=== PATIENT | female | born 2000 | race Caucasian/White ===

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

== ENCOUNTER 2021-05-18 18:30 | Emergency (ER) | payer OTHER ==
[2021-05-18 18:51] VITALS: BP 149/86; PULSE 117; RESP 18; TEMP 97.2
[2021-05-18] MEDS ORDERED: Acetaminophen-Codeine 300-30mg TAB PO STA (19:15)
[2021-05-18] MEDS ORDERED: ACET/COD 300 MG/30 MG STARTER PACK 6 TAB BTL PO STA (19:59)
--- NOTE | 2021-05-18 20:04 | ED ---
ENT HPI - General Chief complaint: ENT Stated complaint: Rt Ear Pain Time Seen by Provider: 05/18/21 18:53 Source: patient, RN notes reviewed Mode of arrival: ambulatory Limitations: no limitations - History of Present Illness Initial comments: Patient is a 21-year-old female that presents to the emergency department complaining of continuing ear pain. She notes that she was diagnosed with a ear infection today and was given Bactrim double strength to take 2 times a day. She notes that she took one dose of anabiotic this morning at 9 AM but is still having pain. Patient was informed that antibiotics take several days to take effect in that sometimes things may get worse before they get better. She notes that she's taken [id number] Motrin with no relief. Patient denied any other complaints at this time. Patient did state that she has a history of depression. She denied any chest pain shortness of breath headache nausea vomiting diarrhea constipation fever fatigue chills. - Related Data Allergies Allergy/AdvReac Type Severity Reaction Status Date / Time amoxicillin [From Augmentin] Allergy Anaphylaxis Verified 05/18/21 18:52 bee venom protein (honey bee) Allergy Swelling Verified 05/18/21 18:52 clavulanic acid Allergy Anaphylaxis Verified 05/18/21 18:52 [From Augmentin] sun Allergy Unknown Uncoded 05/18/21 18:52 Review of Systems ROS Statement: Those systems with pertinent positive or pertinent negative responses have been documented in the HPI. ROS Other: All systems not noted in ROS Statement are negative. Past Medical History Past Medical History: Asthma, GERD/Reflux History of Any Multi-Drug Resistant Organisms: None Reported Past Surgical History: No Surgical Hx Reported Past Psychological History: Anxiety, Depression Smoking Status: Never smoker Past Alcohol Use History: None Reported Past Drug Use History: None Reported General Exam Limitations: no limitations General appearance: alert, in no apparent distress, obese Head exam: Present: atraumatic, normocephalic, normal inspection Eye exam: Present: normal appearance, PERRL, EOMI. Absent: scleral icterus, conjunctival injection, periorbital swelling ENT exam: Present: normal exam, normal oropharynx, mucous membranes moist. Absent: TM's normal bilaterally (Right TM erythematous, patient states this is the painful ear.) Neck exam: Present: normal inspection Respiratory exam: Present: normal lung sounds bilaterally. Absent: respiratory distress, wheezes, rales, rhonchi, stridor Cardiovascular Exam: Present: regular rate, normal rhythm, normal heart sounds. Absent: systolic murmur, diastolic murmur, rubs, gallop, clicks Extremities exam: Present: normal inspection, full ROM, normal capillary refill. Absent: tenderness, pedal edema, joint swelling, calf tenderness Neurological exam: Present: alert, oriented X3 Psychiatric exam: Present: normal affect, depressed Skin exam: Present: warm, dry, intact, normal color. Absent: rash Course Vital Signs 05/18/21 18:47 Temperature 97.2 F L Pulse Rate 117 H Respiratory 18 Rate Blood Pressure 149/86 O2 Sat by Pulse 98 Oximetry Medical Decision Making - Medical Decision Making 21-year-old female complaining of ear pain after being diagnosed with ear infection today. She did know she took one dose of her antibiotic. Tylenol 3 ordered for pain. Patient was informed that antibiotics take some time to take effect and that it might be uncomfortable for the first 2 days. Case discussed with Dr. Morrell, patient discharge home with follow-up to primary care. Patient was given a list of resources for psychiatric help as she stated that she does have a history of depression. Disposition Clinical Impression: Otitis media Disposition: HOME SELF-CARE Condition: Stable Instructions (If sedation given, give patient instructions): Earache (ED) Additional Instructions: Please return to the Emergency Department if symptoms worsen or any other concerns. Follow-up with primary care as needed. Continue take antibiotics until prescribed. Take Tylenol 3 as prescribed for pain control. Can use hot compress to help alleviate some of the discomfort. Is patient prescribed a controlled substance at d/c from ED?: No Referrals: Sylvain Carbajal MD [Primary Care Provider] - 1-2 days Time of Disposition: 20:04
== END 2021-05-18 20:07 | disposition home or self-care (01) ==
LOC: EC 18:30
DX: H66.91 Otitis media, unspecified, right ear (principal); J45.909 Unspecified asthma, uncomplicated; K21.9 Gastro-esophageal reflux disease without esophagitis; F32.9 Major depressive disorder, single episode, unspecified; F41.9 Anxiety disorder, unspecified
CPT/HCPCS: 99282